=== PATIENT | female | born 1990 | race Caucasian/White ===

== ENCOUNTER → 2022-03-07 | Emergency (ER) | payer OTHER | END | disposition left against medical advice (07) | LOC: ER1 02:24 | DX: Z53.21 Procedure and treatment not carried out due to patient leaving prior to being seen by health care provider (principal) ==

== ENCOUNTER 2022-04-12 01:27 | Emergency (ER) | payer OTHER | END 2022-04-12 05:10 | disposition home or self-care (01) | LOC: ER1 01:27 | DX: S40.012A Contusion of left shoulder, initial encounter (principal); S20.212A Contusion of left front wall of thorax, initial encounter; M54.2 Cervicalgia; M54.9 Dorsalgia, unspecified; W17.89XA Other fall from one level to another, initial encounter; F17.200 Nicotine dependence, unspecified, uncomplicated | CPT/HCPCS: 70450; 71045; 72125; 72128; 72131; 73030; 99283; J1885 ==